=== PATIENT | male | born 1970 | race Caucasian/White ===

== ENCOUNTER 2017-06-07 20:34 | Emergency (ER) | payer BC ==
[~2017-06-07] VITALS: Ht 170.2 cm; Wt 90.7 kg
[~2017-06-07 20:34] MED LIST: ALLEGRA-D 12 H1 EAC1 PO; ATORVASTATIN CA40 MG PO; BACTRIM DS TAB1 EACH PO; CHOLESTEROL MED; CIPRO500 MG PO; FLEXERIL PO; HYDROXYZINE HCL25 M1 PO; IBUPROFEN 800800 MG PO; LEXAPRO 10 MG T10 M2 PO; LIPITOR10 MG PO; MEDROL2 MG PO; MEDROLDOSEPACK PO; NORCO 5-325 TA1 EACH PO; PROAIR HFA8.5 GM IH; ROBAXIN500 MG PO; TESSALON PERLE100 MG PO; TRIAMCINOLONE A80 GM TOP; XANAX 0.25 MG0.25 MG PO; ZOLOFT 50 MG TA50 M1 PO; ZOLOFT25 MG PO
[2017-06-07 21:49] VITALS: BP 141/81
== END 2017-06-07 21:54 | disposition home or self-care (01) ==
LOC: M.ERS 20:34
DX: S63.592A Other specified sprain of left wrist, initial encounter (principal); G89.29 Other chronic pain; M54.2 Cervicalgia; F41.9 Anxiety disorder, unspecified; F32.9 Major depressive disorder, single episode, unspecified; E78.00 Pure hypercholesterolemia, unspecified; F17.210 Nicotine dependence, cigarettes, uncomplicated; W01.0XXA Fall on same level from slipping, tripping and stumbling without subsequent striking against object, initial encounter; Y93.89 Activity, other specified; Y92.89 Other specified places as the place of occurrence of the external cause; Y99.8 Other external cause status

== ENCOUNTER 2018-09-01 21:31 | Emergency (ER) | payer BC ==
[~2018-09-01] VITALS: Ht 170.2 cm; Wt 89.8 kg
[2018-09-01] MEDS ORDERED: ZYRTEC10 M2 PO (21:45)
[2018-09-01 22:12] LABS: ABSOLUTE BASOPHILS 0.1 thou/uL (0.0-0.2); ABSOLUTE EOSINOPHILS 0.1 thou/uL (0.0-0.7); ABSOLUTE LYMPHOCYTES 1.9 thou/uL (0.8-5.3); ABSOLUTE MONOCYTES 0.6 thou/uL (0.0-1.2); ABSOLUTE NEUTROPHILS 4.1 thou/uL (1.6-8.1); BASOPHILS 1.2 %; EOSINOPHILS 1.1 %; HEMATOCRIT 38.6 % (42.0-52.0); HEMOGLOBIN 13.3 gm/dL (14.0-18.0); LYMPHOCYTES 27.8 %; MCH 30.6 pg (26.0-34.0); MCHC 34.4 g/dL (28.0-37.0); MCV 88.9 fL (80.0-100.0); MONOCYTES 9.2 %; MPV 8.8 fl. (7.2-11.1); NUCLEATED RBCS 0 /100WBC; PLATELET COUNT* 158 thou/uL (150-400); POLYS 60.7 %; RBC 4.35 mil/uL (4.50-6.00); RDW-CV 13.7 % (10.5-14.5); WBC 6.8 thou/uL (4.0-11.0)
[2018-09-01 22:20] LABS: CALCIUM 8.5 mg/dL (8.5-10.1); CREATININE 1.1 mg/dL (0.6-1.3); POTASSIUM 3.7 mmol/L (3.5-5.1)
[2018-09-02] MEDS ORDERED: NORCO 7.5-3251 EACH PO (01:10)
[2018-09-02 01:27] VITALS: BP 108/82
== END 2018-09-02 01:28 | disposition home or self-care (01) ==
LOC: M.ERS 21:31
PROVIDERS: Emergency Medicine
DX: S20.211A Contusion of right front wall of thorax, initial encounter (principal); S20.212A Contusion of left front wall of thorax, initial encounter; S00.81XA Abrasion of other part of head, initial encounter; F17.210 Nicotine dependence, cigarettes, uncomplicated; M54.2 Cervicalgia; G89.29 Other chronic pain; F41.9 Anxiety disorder, unspecified; F32.9 Major depressive disorder, single episode, unspecified; E78.00 Pure hypercholesterolemia, unspecified; W18.39XA Other fall on same level, initial encounter; Y92.89 Other specified places as the place of occurrence of the external cause; Y93.89 Activity, other specified; Y99.8 Other external cause status